=== PATIENT | female | born 1930 | race Caucasian/White ===

== ENCOUNTER 2017-10-09 21:23 | Inpatient (IN) | payer MEDICARE ==
[~2017-10-09] VITALS: Ht 167.6 cm; Wt 89.3 kg
[~2017-10-09 21:23] MED LIST: ADVAIR 100-501 EACH INH; CALCITRIOL0.5 MCG PO; CALTRATE 600 +1 EAC1 PO; CHOLESTYRAMINE P4 GM PO; CITALOPRAM HBR20 MG PO; DONEPEZIL HCL10 MG PO; LEVOTHYROXINE100 MCG PO; LOPERAMIDE2 MG PO; MAG6464 MG PO; OMEPRAZOLE20 MG PO; SPIRIVA18 MCG INH; VENTOLIN HFA18 GM INH; VITAMIN D2000 UNI1 PO
--- NOTE | 2017-10-10 08:29 | EKG ---
[facility] [address] [address] [place], [place] [address] Signed Normal sinus rhythm Cannot rule out Inferior infarct , age undetermined Abnormal ECG No previous ECGs available Confirmed by JENIFER WALTER MD ([id number]) on 10/10/2017 8:29:41 AM Electronically Signed By: JENIFER WALTER MD 10/10/17 0829 PATIENT NAME: BRYSON LOZADA Electrocardiogram DATE OF : 32 PHYSICIAN: JENIFER WALTER MD REPORT #: [id number] REPORT IS CONFIDENTIAL AND NOT TO BE RELEASED WITHOUT AUTHORIZATION
[2017-10-14] MEDS ORDERED: LEVOTHYROXINE112 MCG PO (10:09)
[2017-10-14] MEDS ORDERED: CHOLESTYRAMINE378 GM PO (10:29)
[2017-10-14] MEDS ORDERED: SYMBICORT 16010.2 GM INH (10:31)
[2017-10-14] MEDS ORDERED: MAGNESIUM DR64 MG PO (10:34)
[2017-10-14] MEDS ORDERED: NAMENDA XR7 MG PO (10:35)
[2017-10-14] MEDS ORDERED: NYSTOP60 GM TOP (10:36)
[2017-10-14] MEDS ORDERED: SUCRALFATE1 GM PO (10:38)
[2017-10-14] MEDS ORDERED: ASPIR 8181 MG PO (22:50)
[2017-10-14] MEDS ORDERED: ERYTHROMYCIN1 GM OS (22:53)
[2017-10-14] MEDS ORDERED: LOPERAMIDE2 MG PO (22:54)
[2017-10-15] MEDS ORDERED: LIPITOR10 MG PO (10:12)
== END 2017-10-15 14:20 | disposition short-term general hospital (02) | DRG 65 ==
LOC: ED 21:23 → MS 23:09
PROVIDERS: ADMIT Internal Medicine
DX: I63.9 Cerebral infarction, unspecified (principal); G81.91 Hemiplegia, unspecified affecting right dominant side; N39.0 Urinary tract infection, site not specified; R13.12 Dysphagia, oropharyngeal phase; R29.710 NIHSS score 10; Z87.891 Personal history of nicotine dependence; B96.20 Unspecified Escherichia coli [E. coli] as the cause of diseases classified elsewhere; H01.006 Unspecified blepharitis left eye, unspecified eyelid; J44.9 Chronic obstructive pulmonary disease, unspecified; E03.9 Hypothyroidism, unspecified; F03.90 Unspecified dementia, unspecified severity, without behavioral disturbance, psychotic disturbance, mood disturbance, and anxiety; I10 Essential (primary) hypertension; Z66 Do not resuscitate
CPT/HCPCS: 36415; 70450; 71010; 74230; 80048; 80053; 81001; 84484; 85025; 85610; 85730; 87077; 87088; 87186; 92611; 93005; 93010; 94640; 94760; 97110; 97112; 97163; 97530; J0696; J1650; J2405; J3480; J7030